=== PATIENT | male | born 1980 | race Caucasian/White ===

== ENCOUNTER 2023-11-14 15:14 | Emergency (ER) | payer OTHER, SELFPAY ==
[2023-11-14 15:21] VITALS: BP 144/89
[2023-11-14 15:52] VITALS: BP 134/95
[2023-11-14 16:00] VITALS: BP 129/77
[2023-11-14 17:00] VITALS: BP 135/82
[2023-11-14 18:03] VITALS: BP 141/83
--- NOTE | 2023-11-14 18:24 | ED.GENMED ---
History of Present Illness
General
Chief Complaint: Headache
Source: patient
Exam Limitations: none
Time Seen by Provider: 11/14/23 16:31
Nursing documentation reviewed up to this point in time: agreed with
Travel History
Have you had any contact with someone who has COVID-19?: No
Do you have any symptoms of coronavirus? Fever > 100 degrees, chills, cough, shortness of breath, sore throat, loss of taste or smell, muscle aches, or headache?: No
History of Present Illness
History of Present Illness:
The patient is a pleasant 43-year-old man who reports that he had a significant concussion many years ago, and ever since then, has had occasional ' thunderclap' headaches. He reports the last episode occurred about 2 years ago. He is followed by
neurology and was told that if this ever happens again, that he needs to get checked out. Patient reports that he was walking around his house today and felt a sudden onset of his severe headache this morning. Patient reports it lasted about 30
seconds and has doubled out significantly. Patient reports it is currently a 2 out of 10 in intensity. He denies sensitivity to light, vomiting, sore throat, and rash. Patient reports he did not really want to come here but did so for
precautionary reasons. Patient denies a history of subarachnoid hemorrhage or aneurysm.
Past History
Past History
ED Past Medical History: HTN and Hypercholesterolemia
ED Past Surgical History: None
Social History
Tobacco: Non-smoker
Alcohol: Other
Drug: None
Personal: Other ()
Living: with roommate
Employment: Employed ([employer])
Family History
Family History: Other
Review of Systems
Review of Systems
Allergies reviewed?: Yes
All Other Systems: ROS reviewed and negative except as documented in HPI and ROS
Constitutional: Reports no symptoms
EENT: Reports no symptoms
Respiratory: Reports no symptoms
ABD/GI: Reports no symptoms
: Reports no symptoms
Musculoskeletal: Reports no symptoms
Skin: Reports no symptoms
Neurological: Reports headache
Hematologic/Lymphatic: Reports no symptoms
Psychiatric: Reports no symptoms
Phy Exam
Physical Exam
Physical Exam:
Physical Exam
General: no apparent distress, not acutely ill. Very well and comfortable appearing. Smiling
Neck: supple. no meningeal signs. normal psoterior pharynx
Heart: s1/s2 regular rate and rhythm, no murmur. equal radial pulses.
Lungs: no acute respiratory distress. clear bilaterally
Abdomen: normal bowel sounds. not tender. no CVAT
Neuro: alert and oriented. no focal neurological deficits. Cranial nerves equal and symmetric bilaterally. 5 out of 5 strength in all extremities without drift. Normal finger-nose. Normal gait.
Skin: no rash
Psychiatric: well kept. interactive and cooperative
Extremities: no edema. no calf tenderness. negative homans. good distal pulses
Course
Orders/Labs/Results
Orders:
Orders
11/14/23 16:51
CT Head W/o Iv Contrast Urgent
Comment:
Reason For Exam: headache
Vital Signs
Initial and Last Documented VS:
Initial Vital Signs
Temp Pulse Resp BP Pulse Ox
98.4 F 82 16 144/89 97
11/14/23 15:21 11/14/23 15:21 11/14/23 15:21 11/14/23 15:21 11/14/23 15:21
Last Documented Vital Signs
Temp Pulse Resp BP Pulse Ox
98.4 F 71 0 135/82 96
11/14/23 15:21 11/14/23 16:00 11/14/23 17:00 11/14/23 17:00 11/14/23 17:00
MDM/Problems Addressed
Differential Diagnosis Includes:
Tension headache, migraine headache, subarachnoid hemorrhage
MDM/Problems Addressed:
Patient presents after experiencing an acute headache earlier today
Chronic conditions affecting care:
Concussion, prior headache history
Acute Exacerbation and/or Progression of Chronic Illness:
Patient is acutely hypertensive but I do not feel it is significant and he will be told to follow-up with his doctor
Acute Exacerbation and/or Progression of Chronic Illness: HTN
*Radiology
Radiology exam reviewed: radiology read reviewed
*Pulse Oximetry
Patient hypoxic: no
*EKG
Interpreted by ED Provider?: NA
*Associate Professor Of Literacy Interpretation
Rate: Associate Professor Of Literacy- N/A
*Critical Care Note
Total Time (30-74mins, 75-104mins- exclusive of procedures): Not Applicable
Patient Management
Escalation/DeEscalation of care consider admission/obs:
Patient remains extremely well and comfortable appearing. He is a normal neurological exam. His CT was negative. Clinically it is doubtful that he has subarachnoid hemorrhage
ED Attending Note
-
Portions of this chart may have been created with voice recognition software.� Occasional wrong word or��sound alike� substitutions may have occurred due to the inherent limitations of voice recognition software.
Discharge Plan
Departure
Patient Disposition: Home (Routine Discharge)
Date of Disposition: 11/14/23
Time of Disposition: 18:19
Patient with high blood pressure during this ER visit?: Yes
Condition: Good
Covid-19: Not Applicable
Discharge Problem:
Acute headache
Instructions: Headache, Adult (DC), BLOOD PRESSURE
Prescriptions:
No Action
levothyroxine [Synthroid] 50 MCG tablet
1 tab PO DAILY
fenofibrate nanocrystallized 145 MG tablet
1 tab PO .QPM
Referrals:
Gisele Taylor PA-C [Family Provider] -
Interventions
Interventions:
*Risk Screen - Suicide Last Done: 11/14/23 16:04
*General Assessment Last Done: 11/14/23 16:04
*Neglect/Abuse Screening Last Done: 11/14/23 16:04
ED- Fall Risk Assessment Last Done: 11/14/23 16:05
*ED COVID-19 Vaccine History Last Done: 11/14/23 15:21
ED- Neurological Assessment Last Done: 11/14/23 16:05
== END 2023-11-14 18:28 | disposition home or self-care (01) ==
LOC: EMR 15:14
PROVIDERS: EMERGENCY PHYSICIAN Emergency Medicine; FAMILY PHYSICIAN Physician Assistant Medical
DX: R51.9 Headache, unspecified (principal); I10 Essential (primary) hypertension
CPT/HCPCS: 99284; 70450

== ENCOUNTER → 2024-06-27 13:33 | Outpatient (REF) | payer OTHER, SELFPAY ==
--- NOTE | 2024-06-27 14:25 | CARDSERVDEF ---
Echocardiogram with Definity completed after protocol screening completed. Allergies verified.
Patent IV site: 2 g angio inserted in RFA without incident (1st attempt); site flushed with 0.9% NaCl pre and post administration.
Diluted bolus method utilized to enhance visualization of ventricular hernandez.
Total volume given: 4 mL
Patient tolerated all procedures well without complications.
IV D/C'd and pressure maintained. Bandage applied.
== END ==
LOC: RCS 13:33
PROVIDERS: ATTENDING PHYSICIAN Internal Medicine Cardiovascular Disease; FAMILY PHYSICIAN Physician Assistant Medical
DX: R94.31 Abnormal electrocardiogram [ECG] [EKG] (principal); R06.09 Other forms of dyspnea
CPT/HCPCS: 93017; 93350; Q9957

== ENCOUNTER → 2024-06-28 08:42 | Outpatient (REF) | payer SELFPAY | LOC: HWRAD 08:42 | PROVIDERS: ATTENDING PHYSICIAN Internal Medicine Cardiovascular Disease; FAMILY PHYSICIAN Physician Assistant Medical | DX: E78.2 Mixed hyperlipidemia (principal) | CPT/HCPCS: 75571 ==